=== PATIENT | female | born 1965 | race Caucasian/White ===

== ENCOUNTER 2018-08-22 11:55 | Emergency (ER) | payer BC ==
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
[2018-08-22] MEDS ORDERED: HYDROmorphone 1 MG/ML Syringe IM ONE (12:50)
== END 2018-08-22 13:11 | disposition home or self-care (01) ==
LOC: JD.ED 11:55
DX: M25.561 Pain in right knee (principal); M54.5 Low back pain; G89.29 Other chronic pain; E11.9 Type 2 diabetes mellitus without complications; Z88.5 Allergy status to narcotic agent; Z88.6 Allergy status to analgesic agent; Z79.84 Long term (current) use of oral hypoglycemic drugs; Z79.899 Other long term (current) drug therapy; F17.210 Nicotine dependence, cigarettes, uncomplicated
CPT/HCPCS: 96372; 99281; J1170

== ENCOUNTER 2019-02-11 20:43 | Emergency (ER) | payer BC ==
--- NOTE | 2019-02-11 21:20 | EDM.PDOC ---
ED HPI GENERAL MEDICAL PROBLEM - General Chief Complaint: Chest Pain Stated Complaint: cough congestion short of breath Time Seen by Provider: 02/11/19 21:20 Source of Information: Reports: Patient History Limitations: Reports: No Limitations - History of Present Illness INITIAL COMMENTS - FREE TEXT/NARRATIVE: 53-year-old female presents the ED with acute onset of illness 2 days ago. Presents with fever and chills. Decreased appetite. Diffuse severe headache. Heart paroxysmal minimally productive cough. Patient smokes a pack of cigarettes a day and states she is very prone to pneumonia. He hasn't eaten at all today and not much yesterday due to current illness. Feels lightheaded and dizzy. She did have a flu shot. Her is also starting to feel unwell and he is in the room with her. Their son came home on the bus from [facility] very ill 2 days ago with fever chills headache and thus exposure likely to influenza. Clinically she has influenza. Nurses of already taken swabs from her nose. Onset: Sudden Onset Date: 02/09/19 Duration: Day(s): (About 36 hours.) Location: Reports: Chest (Generalized myalgia arch paroxysmal sometime productive cough), Generalized, Other (Anorexia and severe headache.) Quality: Reports: Ache (Headache) Severity: Moderate (8 out of 10) Improves with: Reports: None Worsens with: Reports: None Context: Reports: Sick Contact. Denies: Activity, Exercise, Lifting, Trauma ( Exposed to her son who is sick with high fever cough headache and paroxysmal cough compatible with influenza exposure), Other Associated Symptoms: Reports: Chest Pain, Cough, cough w sputum, Diaphoresis, Fever/Chills, Headaches, Loss of Appetite, Malaise, Shortness of Breath, Weakness. 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: Acetaminophen Middle Chest Pain Score (Numeric/FACES): 8 - Related Data Allergies Allergy/AdvReac Type Severity Reaction Status Date / Time ibuprofen [From Motrin] Allergy Itching Verified 02/11/19 20:52 ketorolac [From Toradol] Allergy Nausea Verified 02/11/19 20:52 morphine Allergy Itching Verified 02/11/19 20:52 Home Meds: Home Meds Albuterol [Ventolin HFA] 1 puff INH BID 09/22/18 [History] Fluticasone/Salmeterol [Advair 250-50 Diskus] 2 puff INH TID 08/22/18 [History] Lidocaine 0.5% [Xylocaine-MPF 0.5%] 1 applic TOP ASDIRECTED 08/22/18 [History] Omeprazole 20 mg PO DAILY 08/22/18 [History] metFORMIN [Glucophage XR] 500 mg PO DAILY 08/22/18 [History] oxyCODONE 10 mg PO BID 08/22/18 [History] oxyCODONE ER [OxyCONTIN] 10 mg PO BID 08/22/18 [History] oxyCODONE ER [OxyCONTIN] 10 mg PO Q12H #20 tab.er 08/22/18 [Rx] oxyCODONE HCl [Oxycodone HCl] 10 mg PO BID PRN #20 tablet 08/22/18 [Rx] Hydrocodone/Chlorphen P-Stirex [Tussionex Pennkinetic Susp] 5 ml PO Q12H PRN # 60 ml 02/11/19 [Rx] Oseltamivir [Tamiflu] 75 mg PO BID #10 cap 02/11/19 [Rx] Past Medical History Respiratory History: Reports: COPD (Chronic cigarette smoker.), Pneumonia, Recurrent Gastrointestinal History: Reports: GERD Musculoskeletal History: Reports: Back Pain, Chronic, RA, Other (See Below) Other Musculoskeletal History: right knee pain;right collar bone pain;back of neck into shoulders Psychiatric History: Reports: Anxiety Endocrine/Metabolic History: Reports: Diabetes, Type II Social & Family History - Tobacco Use Smoking Status *Q: Current Every Day Smoker Tobacco Use Within Last Twelve Months: Cigarettes (Pack per day) Years of Tobacco use: 30 Packs/Tins Daily: 1 - Caffeine Use Caffeine Use: Reports: None - Recreational Drug Use Recreational Drug Use: No - Living Situation & Occupation Living situation: Reports: Occupation: Unemployed ED ROS GENERAL - Review of Systems Review Of Systems: See Below Constitutional: Reports: Fever, Chills, Malaise, Fatigue, Decreased Appetite HEENT: Reports: Hearing Loss Respiratory: Reports: Shortness of Breath (Very hard of hearing.), Cough, Sputum. Denies: Wheezing, Hemoptysis, Other Cardiovascular: Reports: Chest Pain, Blood Pressure Problem (Central chest pressure and pain from coughing so much blood pressure is markedly elevated initially at 161/117. It is coming down to 131/101 at present) Endocrine: Reports: Fatigue GI/Abdominal: Reports: Anorexia, Decreased Appetite : Reports: No Symptoms Musculoskeletal: Reports: Muscle Pain Skin: Reports: No Symptoms (Generalized myalgia particularly neck back and thighs. Her joints hurt as well that are involved with arthritis.) Neurological: Reports: Dizziness Psychiatric: Reports: No Symptoms Hematologic/Lymphatic: Reports: No Symptoms Immunologic: Reports: No Symptoms ED EXAM, GENERAL - Physical Exam Exam: See Below Exam Limited By: No Limitations General Appearance: Alert, WD/WN, Moderate Distress, Other (She is very warm to palpation. Appears ill. She'll did present time.) Eye Exam: Bilateral Eye: Normal Inspection (Does have pain on lateral gaze bilaterally.) Ears: Other. No: Hearing Grossly Normal (overed with cerumen contributing to her hearing loss.) Ear Exam: Bilateral Ear: Other (TMs obscured by cerumen) Throat/Mouth: Normal Lips (Uvula slightly swollen posterior oropharynx slightly erythematous from excessive coughing.), Other. No: Normal Oropharynx Head: Atraumatic, Normocephalic Neck: Normal Inspection, Supple, Non-Tender, Full Range of Motion. No: Lymphadenopathy (L), Lymphadenopathy (R) Respiratory/Chest: Lungs Clear, Respiratory Distress (Moderate tachypnea at 34 per minute. O2 sats 97%.), Decreased Breath Sounds, Other (Does have a productive sounding cough however.). No: Rales, Rhonchi (Breath sounds slightly diminished in the lower 15% of lung lipscomb bilaterally.), Wheezing Cardiovascular: Normal Peripheral Pulses, Regular Rate, Rhythm, No Edema, No Gallop (Resting tachycardia of 10 4/m), No Murmur, No Rub, Tachycardia Peripheral Pulses: 2+: Posterior Tibial (L), Posterior Tibial (R), Dorsalis Pedis (L), Dorsalis Pedis (R) GI/Abdominal: Normal Bowel Sounds (Slightly decreased pulses to both feet but they're cool to touch), Soft, Non-Tender, No Organomegaly, No Abnormal Bruit, No Mass, Pelvis Stable Back Exam: Normal Inspection, Full Range of Motion. No: CVA Tenderness (L), CVA Tenderness (R) Extremities: Normal Inspection, Normal Range of Motion, Non-Tender, No Pedal Edema Neurological: Alert, Oriented, CN II-XII Intact, Normal Cognition Psychiatric: Normal Affect, Other Skin Exam: Warm (She is sick.), Dry, Intact, Normal Color, No Rash Course - Vital Signs Last Recorded V/S: Last Vital Signs Temp 36.9 C 02/11/19 20:49 Pulse 103 H 02/11/19 20:49 Resp 34 H 02/11/19 20:49 BP 160/117 H 02/11/19 20:49 Pulse Ox 93 L 02/11/19 21:55 - Orders/Labs/Meds Orders: Active Orders 24 hr Category Date Time Status Chest 1V Frontal [CR] Stat Exams 02/11/19 21:32 Taken Dextrose 5%-0.9% NaCl [Dextrose 5%-Normal Saline] 1,000 Med 02/11/19 21:30 Active ml IV ASDIRECTED Medication Orders Dextrose/Sodium Chloride (Dextrose 5%-Normal Saline) 1,000 mls @ 999 mls/hr IV ASDIRECTED LUIS Last Admin: 02/11/19 21:46 Dose: 999 mls/hr Meds: Medications Generic Name Dose Route Start Last Admin Trade Name Freq PRN Reason Stop Dose Admin Dextrose/Sodium Chloride 1,000 mls @ 999 mls/hr 02/11/19 21:30 02/11/19 21:46 Dextrose 5%-Normal Saline IV 999 mls/hr ASDIRECTED LUIS Administration Discontinued Medications Generic Name Dose Route Start Last Admin Trade Name Freq PRN Reason Stop Dose Admin Acetaminophen 975 mg 02/11/19 21:30 02/11/19 21:47 Tylenol PO 02/11/19 21:31 975 mg NOW ONE Administration Diphenhydramine HCl 25 mg 02/11/19 21:29 02/11/19 21:46 Benadryl IVPUSH 02/11/19 21:30 25 mg ONETIME ONE Administration Hydromorphone HCl 1 mg 02/11/19 21:28 02/11/19 21:46 Dilaudid IVPUSH 02/11/19 21:29 1 mg ONETIME ONE Administration Metoclopramide HCl 7.5 mg 02/11/19 21:29 02/11/19 21:46 Reglan IVPUSH 02/11/19 21:30 7.5 mg ONETIME ONE Administration Ondansetron HCl 4 mg 02/11/19 21:29 02/11/19 21:47 Zofran IVPUSH 02/11/19 21:30 4 mg ONETIME ONE Administration - Radiology Interpretation Free Text/Narrative:: 53-year-old female presents to the ED with a 36 hour history of acute onset of fever chills headache active sounding cough and anorexia all symptoms compatible with influenza infection. 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 Plan she will have IV fluids D5 normal saline at open. She appears moderately depleted hasn't ate or drank hardly anything in the last 36 hours. She is allergic to Toradol. Will be given Tylenol 975 mg for fever relief. Ativan 1 mg IV for headache relief and body ache relief. Reglan 7.5 mg IV for nausea relief. Dilaudid should also help with her chest pain and cough suppression. She will have one view of the chest performed. Influenza screen has been obtained by nursing triage staff - Re-Assessments/Exams Free Text/Narrative Re-Assessment/Exam: 02/11/19 21:43 patient is positive for the influenza A type virus. I have therefore send her to the drugstore before it closes. He will miner pick Tamiflu for her and for him 75 mg twice a day for the next 5 days and cough syrup Tussionex 5 mils every 12 hours as needed for cough relief primarily for her at this time. No chest x-ray reveals a perihilar infiltrate on the right side with a lot of peribronchial cuffing more compatible with a viral illness. 02/11/19: 23:15: Patient reports feeling much improved. This is after IV fluids and Tylenol to bring her temperature down. Dilaudid IV for headache and body ache relief. He took her first tablet of Tamiflu while she was in the ED. Her was also started on it as he is starting to develop symptoms of headache and fever and body aches while in the ED. Departure - Departure Time of Disposition: 23:14 Disposition: Home, Self-Care 01 Condition: Fair Clinical Impression: Influenza A - Discharge Information *PRESCRIPTION DRUG MONITORING PROGRAM REVIEWED*: Not Applicable *COPY OF PRESCRIPTION DRUG MONITORING REPORT IN PATIENT JACI: Not Applicable Prescriptions: Hydrocodone/Chlorphen P-Stirex [Tussionex Pennkinetic Susp] 5 ml PO Q12H PRN # 60 ml PRN Reason: Cough relief Oseltamivir [Tamiflu] 75 mg PO BID #10 cap Instructions: Influenza, Adult, [id number] Referrals: fOe Guillen, IT SECURITY SPECIALIST [Primary Care Provider] - Forms: ED Department Discharge Additional Instructions: Evaluation in the emergency department in regards to you to onset of high fever with associated chills. Headache paroxysmal sometimes productive cough. Lysed myalgia. These are all signs and symptoms of influenza A. Testing proved positive for influenza a type virus. You are treated with emergency room with IV fluids to provide rehydration and medications to help relieve headache and generalized body pains and bring down your fever. Treatment at home should be Aleve 2 tablets every 8 hours or Motrin 600 mg every 6 hours to relieve body aches, headache, fever. Alternatively you could use Tylenol 650 mg every 4 hours but this will be less effective. He was started on antiviral medication Tamiflu 75 mg twice daily for the next 5 days to bring the flow under control. Usually symptoms start to improve after 3 -4tablets. Off likely last close to 2 weeks. Cough syrup 5 mils of Tussionex at bedtime about an hour before bed is suggested to bring your cough under control. Try and drink plenty of fluids such as Gatorade or Powerade to maintain hydration as appetite is usually very poor when you are sick with influenza virus. Diet as tolerated. - My Orders Last 24 Hours: My Active Orders 02/11/19 21:30 Dextrose 5%-0.9% NaCl [Dextrose 5%-Normal Saline] 1,000 ml IV ASDIRECTED 02/11/19 21:32 Chest 1V Frontal [CR] Stat - Assessment/Plan Last 24 Hours: My Active Orders 02/11/19 21:30 Dextrose 5%-0.9% NaCl [Dextrose 5%-Normal Saline] 1,000 ml IV ASDIRECTED 02/11/19 21:32 Chest 1V Frontal [CR] Stat
[2019-02-11] MEDS ORDERED: HYDROmorphone 1 MG/ML Syringe IVPUSH ONE (21:28)
[2019-02-11] MEDS ORDERED: Ondansetron 4 MG/2 ML SDV IVPUSH ONE (21:29)
[2019-02-11] MEDS ORDERED: diphenhydrAMINE 50 MG/ML SDV IVPUSH ONE (21:29)
[2019-02-11] MEDS ORDERED: Metoclopramide 10 MG/2 ML SDV IVPUSH ONE (21:29)
[2019-02-11] MEDS ORDERED: Acetaminophen 325 MG Tab PO ONE (21:30)
[2019-02-11] MEDS ORDERED: Dextrose 5%-0.9% NaCl 1,000 ML IV SCH (21:30)
--- NOTE | 2019-02-12 10:26 | CR ---
Chest: Frontal view of the chest was obtained. Comparison: No prior chest x-ray. Heart size and mediastinum are within normal limits. Previous sternotomy is seen. Lungs are clear with no acute parenchymal change. Impression: 1. Nothing acute is identified on frontal chest x-ray. Diagnostic code #2
== END 2019-02-11 23:25 | disposition home or self-care (01) ==
LOC: JD.ED 20:43
DX: J10.1 Influenza due to other identified influenza virus with other respiratory manifestations (principal); E11.9 Type 2 diabetes mellitus without complications; K21.9 Gastro-esophageal reflux disease without esophagitis; J44.9 Chronic obstructive pulmonary disease, unspecified; Z79.84 Long term (current) use of oral hypoglycemic drugs; Z88.6 Allergy status to analgesic agent; Z88.5 Allergy status to narcotic agent; Z79.899 Other long term (current) drug therapy
CPT/HCPCS: 71045; 87804; 96361; 96374; 96375; 99285; A9270; J1170; J1200; J2405; J2765; J7042; 99284